=== PATIENT | female | born 2000 | race Hispanic/Latino ===

== ENCOUNTER 2020-03-30 06:18 | Emergency (ER) | payer OTHER ==
[~2020-03-30] VITALS: Ht 149.9 cm; Wt 53.5 kg
[2020-03-30] MEDS ORDERED: NS 1,000 ML IV ONE (07:00)
[2020-03-30] MEDS ORDERED: MORPHINE 2 MG/ML 1ML VIAL (J2270) IV ONE (07:00)
[2020-03-30] MEDS ORDERED: ONDANSETRON 4MG/2ML VIAL IV ONE (07:00)
[2020-03-30 07:44] LABS: BASO % 0.4 % (0.0-1.0); EOS % 0.1 % (0.0-3.0); HEMATOCRIT 43.4 % (36.0-47.0); HEMOGLOBIN 15.5 g/dl (12.0-15.5); LYMPH # 1.7 10^3/uL (1.5-5.0); LYMPH % 14.9 % (24.0-44.0); MEAN CORPUSCULAR HEMOGLOBIN 33.3 pg (27.0-33.0); MEAN CORPUSCULAR HGB CONC 35.7 g/dl (32.0-36.5); MEAN CORPUSCULAR VOLUME 93.3 fl (80.0-96.0); MONO # 0.6 10^3/uL (0.0-0.8); MONO % 5.5 % (0.0-5.0); NEUTROPHILS % 78.8 % (36.0-66.0); PLATELET COUNT, AUTOMATED 375 10^3/uL (150-450); RED BLOOD COUNT 4.65 10^6/uL (4.00-5.40); WHITE BLOOD COUNT 11.4 10^3/uL (4.0-10.0)
[2020-03-30 08:06] LABS: ALBUMIN 5.1 GM/DL (3.2-5.2); BILIRUBIN,DIRECT 0.2 MG/DL (0.0-0.2); BILIRUBIN,TOTAL 0.7 MG/DL (0.2-1.0); TOTAL PROTEIN 9.1 GM/DL (6.4-8.2)
[2020-03-30] MEDS ORDERED: ONDA4TAB6 PO (09:24)
[2020-03-30 09:40] VITALS: BP 129/65
--- NOTE | 2020-03-30 10:05 | REP ---
Right upper quadrant sonography: Repeat dictation. History: Right upper quadrant pain, nausea, vomiting. Preliminary report is provided at the time of the exam by cynthia LAMA. Comparison study: No comparison study. Findings: Scanning through the right upper quadrant of the abdomen demonstrates a normal sized, thin-walled gallbladder without evidence of stone or polyp. Common bile duct is normal measuring 0.5 cm in greatest diameter. No focal liver lesion is seen. Liver size is normal. No pancreatic abnormality is observed. No right renal abnormality is seen. There is no evidence of ascites. The right kidney measures 10.0 x 5.5 x 4.0 cm. Impression: Negative right upper quadrant sonography. Electronically Signed by Kg Gallo MD 03/30/2020 09:57 A
[2020-03-30] MEDS ORDERED: IBUP-1022 PO (22:37)
[2020-03-30] MEDS ORDERED: HYDR-3713 PO (22:37)
== END 2020-03-30 09:42 | disposition home or self-care (01) ==
LOC: M ED 06:18
DX: R10.11 Right upper quadrant pain (principal); R11.2 Nausea with vomiting, unspecified; R19.7 Diarrhea, unspecified

== ENCOUNTER 2020-04-21 04:43 | Emergency (ER) | payer OTHER ==
[~2020-04-21] VITALS: Ht 149.9 cm; Wt 55.0 kg
[~2020-04-21 04:43] MED LIST: HYDR-3713 PO; IBUP-1022 PO; ONDA4TAB6 PO
[2020-04-21 04:45] VITALS: BP 124/72
[2020-04-21 05:28] LABS: BASO % 0.3 % (0.0-1.0); EOS # 0.2 10^3/uL (0.0-0.5); EOS % 2.8 % (0.0-3.0); HEMATOCRIT 42.6 % (36.0-47.0); HEMOGLOBIN 14.1 g/dl (12.0-15.5); LYMPH # 2.3 10^3/uL (1.5-5.0); LYMPH % 26.2 % (24.0-44.0); MEAN CORPUSCULAR HEMOGLOBIN 31.7 pg (27.0-33.0); MEAN CORPUSCULAR HGB CONC 33.1 g/dl (32.0-36.5); MEAN CORPUSCULAR VOLUME 95.7 fl (80.0-96.0); MONO # 0.5 10^3/uL (0.0-0.8); NEUTROPHILS # 5.6 10^3/uL (1.5-8.5); NEUTROPHILS % 64.5 % (36.0-66.0); PLATELET COUNT, AUTOMATED 398 10^3/uL (150-450); RED BLOOD COUNT 4.45 10^6/uL (4.00-5.40); WHITE BLOOD COUNT 8.6 10^3/uL (4.0-10.0)
[2020-04-21 05:30] LABS: APPEARANCE, URINE HAZY (CLEAR); BACTERIA, URINE AUTO 1+ (NEGATIVE); BILIRUBIN, URINE AUTO NEGATIVE (NEGATIVE); BLOOD, URINE BLOOD NEGATIVE (NEGATIVE); COLOR, URINE YELLOW (YELLOW); GLUCOSE, URINE (UA) AUTO NEGATIVE (NEGATIVE); KETONE, URINE AUTO 2+ mg/dL (NEGATIVE); LEUKOCYTE ESTERASE, URINE AUTO NEGATIVE (NEGATIVE); MUCUS, URINE SMALL (NEGATIVE); NITRITE, URINE AUTO NEGATIVE (NEGATIVE); PROTEIN, URINE AUTO NEGATIVE (NEGATIVE); RBC, URINE AUTO 3 /HPF (0-3); SPECIFIC GRAVITY URINE AUTO 1.016 (1.002-1.035); SQUAMOUS EPITHELIAL CELL UR AU 15 /HPF (0-6); UROBILINOGEN, URINE AUTO 0.2 mg/dL (0.0-2.0); WBC, URINE AUTO 4 /HPF (0-3)
[2020-04-21 06:01] LABS: ALBUMIN 4.6 GM/DL (3.2-5.2); ALT/SGPT 18 U/L (12-78); BILIRUBIN,DIRECT 0.2 MG/DL (0.0-0.2); BILIRUBIN,TOTAL 0.7 MG/DL (0.2-1.0); BLOOD UREA NITROGEN 9 MG/DL (7-18); CALCIUM LEVEL 9.6 MG/DL (8.5-10.1); CARBON DIOXIDE LEVEL 25 MEQ/L (21-32); CHLORIDE LEVEL 105 MEQ/L (98-107); GLUCOSE, FASTING 89 MG/DL (70-100); LIPASE 74 U/L (73-393); POTASSIUM SERUM 3.9 MEQ/L (3.5-5.1); SODIUM LEVEL 138 MEQ/L (136-145); TOTAL PROTEIN 8.2 GM/DL (6.4-8.2)
[2020-04-21 06:04] LABS: HCG, SERUM QUALITATIVE NEGATIVE (NEGATIVE)
== END 2020-04-21 06:39 | disposition home or self-care (01) ==
LOC: M ED 04:43
DX: R11.2 Nausea with vomiting, unspecified (principal)

== ENCOUNTER 2020-05-17 12:03 | Emergency (ER) | payer OTHER, SELFPAY ==
[~2020-05-17] VITALS: Ht 149.9 cm; Wt 51.8 kg
[2020-05-17] MEDS ORDERED: KETOROLAC 60MG 2ML VIAL IM ONE (13:00)
[2020-05-17 13:01] LABS: BASO % 0.3 % (0.0-1.0); EOS # 0.1 10^3/uL (0.0-0.5); EOS % 0.5 % (0.0-3.0); HEMOGLOBIN 14.5 g/dl (12.0-15.5); LYMPH # 1.2 10^3/uL (1.5-5.0); LYMPH % 11.1 % (24.0-44.0); MEAN CORPUSCULAR HGB CONC 34.5 g/dl (32.0-36.5); MEAN CORPUSCULAR VOLUME 95.5 fl (80.0-96.0); MONO # 0.5 10^3/uL (0.0-0.8); MONO % 4.8 % (0.0-5.0); NEUTROPHILS # 8.6 10^3/uL (1.5-8.5); NEUTROPHILS % 82.8 % (36.0-66.0); PLATELET COUNT, AUTOMATED 401 10^3/uL (150-450); WHITE BLOOD COUNT 10.4 10^3/uL (4.0-10.0)
[2020-05-17] MEDS ORDERED: ONDANSETRON 4 MG ORAL DISINTEGRATING TAB PO ONE ×2 (13:15→16:45)
[2020-05-17] MEDS ORDERED: NS 1,000 ML IV ONE (13:15)
[2020-05-17] MEDS ORDERED: ISOVUE-370 76% 100ML VIAL As Ordered ONE (13:21)
[2020-05-17] MEDS ORDERED: METOCLOPRAMIDE INJ 10MG/2ML VIAL (J2765 PER 1) IV ONE (14:15)
[2020-05-17 15:46] LABS: CHLAMYDIA DNA AMPLIFICATION NEGATIVE (NEGATIVE); GC DNA AMPLIFICATION NEGATIVE (NEGATIVE)
--- NOTE | 2020-05-17 16:23 | REP ---
CT ABDOMEN AND PELVIS WITH IV CONTRAST: TECHNIQUE: Axial contrast-enhanced images from the lung bases to the pubic symphysis using 100 mL Isovue-370 intravenous contrast material with multiplanar reformations. Visualized lung bases demonstrate no acute infiltrate. A tiny subcentimeter nodular density in the right lower lobe is stable. This is probably benign and unchanged since 03/30/2020. Liver, spleen, adrenals, pancreas and kidneys are unremarkable and unchanged. There is no hydronephrosis. There is no abdominal aortic aneurysm. There is no adenopathy. There is no free air or free fluid. There is no bowel wall thickening. The appendix is normal. There is no pelvic mass. Urinary bladder is not distended and not well evaluated. IMPRESSION: No acute abnormalities detected. Electronically Signed by Lewis Kennedy MD 05/17/2020 11:57 P
[2020-05-17 16:35] LABS: ALBUMIN 4.1 GM/DL (3.2-5.2); BILIRUBIN,DIRECT 0.1 MG/DL (0.0-0.2); BILIRUBIN,TOTAL 0.3 MG/DL (0.2-1.0); TOTAL PROTEIN 7.6 GM/DL (6.4-8.2)
[2020-05-17] MEDS ORDERED: DIFL150T PO (16:56)
[2020-05-17] MEDS ORDERED: ONDA4TAB6 PO (16:56)
[2020-05-17 17:07] VITALS: BP 126/71
== END 2020-05-17 17:10 | disposition home or self-care (01) ==
LOC: M ED 12:03
DX: B37.3 Candidiasis of vulva and vagina (principal); Z87.19 Personal history of other diseases of the digestive system; F12.10 Cannabis abuse, uncomplicated; Z88.5 Allergy status to narcotic agent; Z91.010 Allergy to peanuts
CPT/HCPCS: 36415; 74177; 80047; 80076; 81001; 83036; 83690; 84702; 85025; 87086; 87210; 87661; 96361; 96372; 96374; 96375; 99284; J1885; J2765; Q0162; Q9967

== ENCOUNTER 2020-07-16 07:58 | Emergency (ER) | payer OTHER, SELFPAY ==
[~2020-07-16] VITALS: Ht 149.9 cm; Wt 47.4 kg
[~2020-07-16 07:58] MED LIST changes: +DIFL150T PO
[2020-07-16] MEDS ORDERED: ONDANSETRON 4MG/2ML VIAL IV ONE (08:45)
[2020-07-16] MEDS ORDERED: NS 1,000 ML IV ONE (08:45)
[2020-07-16 09:09] LABS: BASO % 0.1 % (0.0-1.0); EOS % 0.2 % (0.0-3.0); HEMATOCRIT 42.3 % (36.0-47.0); HEMOGLOBIN 14.3 g/dl (12.0-15.5); LYMPH # 1.2 10^3/uL (1.5-5.0); LYMPH % 14.3 % (24.0-44.0); MEAN CORPUSCULAR HEMOGLOBIN 32.4 pg (27.0-33.0); MEAN CORPUSCULAR HGB CONC 33.8 g/dl (32.0-36.5); MEAN CORPUSCULAR VOLUME 95.7 fl (80.0-96.0); MONO # 0.5 10^3/uL (0.0-0.8); MONO % 5.3 % (0.0-5.0); NEUTROPHILS # 6.9 10^3/uL (1.5-8.5); PLATELET COUNT, AUTOMATED 333 10^3/uL (150-450); RED BLOOD COUNT 4.42 10^6/uL (4.00-5.40); WHITE BLOOD COUNT 8.7 10^3/uL (4.0-10.0)
[2020-07-16 09:39] LABS: ALBUMIN 4.7 GM/DL (3.2-5.2); ALT/SGPT 14 U/L (12-78); BILIRUBIN,DIRECT 0.2 MG/DL (0.0-0.2); BILIRUBIN,TOTAL 0.9 MG/DL (0.2-1.0); BLOOD UREA NITROGEN 9 MG/DL (7-18); CALCIUM LEVEL 9.8 MG/DL (8.5-10.1); CARBON DIOXIDE LEVEL 22 MEQ/L (21-32); CHLORIDE LEVEL 106 MEQ/L (98-107); CREATININE FOR GFR 0.62 MG/DL (0.55-1.30); GLUCOSE, FASTING 84 MG/DL (70-100); LIPASE 40 U/L (73-393); POTASSIUM SERUM 3.7 MEQ/L (3.5-5.1); SODIUM LEVEL 139 MEQ/L (136-145); TOTAL PROTEIN 8.2 GM/DL (6.4-8.2)
[2020-07-16 09:43] LABS: HCG, SERUM QUALITATIVE NEGATIVE (NEGATIVE)
[2020-07-16] MEDS ORDERED: ALBUTEROL 90 MCG/ACT 8GM HFA INHALER INH ONE (09:45)
[2020-07-16] MEDS ORDERED: ONDANSETRON 4 MG ORAL DISINTEGRATING TAB PO ONE (10:15)
--- NOTE | 2020-07-16 10:51 | REPVR ---
PROCEDURE INFORMATION: Exam: XR Abdomen, 2 Views Exam date and time: 07/16/2020 10:19 AM Age: 19 years old Clinical indication: Abdominal pain; Additional info: Vomiting, diarrhea TECHNIQUE: Imaging protocol: XR of the abdomen. Views: 2 Views. COMPARISON: CT ABD/PEL W/IV CONTRAST ONLY 05/17/2020 1:17 PM FINDINGS: Nonobstructive bowel gas pattern. No gross pneumoperitoneum allowing for supine technique. The lung bases are clear. IMPRESSION: Nonobstructive bowel gas pattern. Electronically signed by: Alonzo Stephens On 07/16/2020 10:50:54 AM
[2020-07-16] MEDS ORDERED: DICY1CAP8 PO (11:08)
[2020-07-16] MEDS ORDERED: ONDA4TAB6 PO (11:08)
[2020-07-16] MEDS ORDERED: VENTAER INH (11:10)
[2020-07-16 11:14] VITALS: BP 119/75
== END 2020-07-16 11:17 | disposition home or self-care (01) ==
LOC: M ED 07:58
DX: R11.2 Nausea with vomiting, unspecified (principal); R19.7 Diarrhea, unspecified; J98.01 Acute bronchospasm; F12.10 Cannabis abuse, uncomplicated; Z91.010 Allergy to peanuts; Z88.6 Allergy status to analgesic agent
CPT/HCPCS: 74019; 80048; 80076; 83690; 84703; 85025; 87507; 94640; 94664; 96361; 96374; 99284; J2405; Q0162